=== PATIENT | female | born 1950 | race Caucasian/White ===

== ENCOUNTER → 2017-07-03 | Outpatient (CLI) | payer OTHER, BC | LOC: FIMAGING 08:54 | PROVIDERS: ATTEND Internal Medicine | DX: Z12.31 Encounter for screening mammogram for malignant neoplasm of breast (principal); Z80.3 Family history of malignant neoplasm of breast | CPT/HCPCS: G0202 ==

== ENCOUNTER → 2018-03-06 | Outpatient (CLI) | payer OTHER, BC | LOC: BMCIMAGING 10:21 | PROVIDERS: ATTEND Internal Medicine | DX: Z13.820 Encounter for screening for osteoporosis (principal); M85.89 Other specified disorders of bone density and structure, multiple sites ==

== ENCOUNTER → 2018-05-14 | Outpatient (CLI) | payer OTHER, BC | LOC: BMCIMAGING 14:39 | PROVIDERS: ATTEND Podiatrist Foot & Ankle Surgery | DX: T84.84XA Pain due to internal orthopedic prosthetic devices, implants and grafts, initial encounter (principal) ==

== ENCOUNTER → 2018-06-25 | Outpatient (CLI) | payer OTHER, BC | LOC: BMCIMAGING 09:27 | PROVIDERS: ATTEND Podiatrist Foot & Ankle Surgery | DX: Z47.89 Encounter for other orthopedic aftercare (principal) ==

== ENCOUNTER → 2018-07-12 | Outpatient (CLI) | payer OTHER, BC | LOC: FIMAGING 14:05 | PROVIDERS: ATTEND Internal Medicine | DX: Z12.31 Encounter for screening mammogram for malignant neoplasm of breast (principal) ==

== ENCOUNTER → 2018-07-25 | Outpatient (CLI) | payer OTHER, BC | LOC: BMCIMAGING 09:24 | PROVIDERS: ATTEND Podiatrist Foot & Ankle Surgery | DX: Z09 Encounter for follow-up examination after completed treatment for conditions other than malignant neoplasm (principal) ==